=== PATIENT | male | born 1980 | race African-American/Black ===

== ENCOUNTER 2019-10-23 10:37 | Emergency (ER) | payer SELFPAY ==
[~2019-10-23] VITALS: Ht 180.3 cm; Wt 120.5 kg
[2019-10-23 10:51] VITALS: TEMP 98.3
[2019-10-23] MEDS ORDERED: PROAIR RES117 MCG/Ac IH (11:00)
[2019-10-23] MEDS ORDERED: PREDNISONE20 MG PO (11:47)
[2019-10-23 12:25] VITALS: BP 101/79; PULSE 111
== END 2019-10-23 12:25 | disposition home or self-care (01) ==
LOC: COL.ER 10:37
DX: J45.901 Unspecified asthma with (acute) exacerbation (principal); I10 Essential (primary) hypertension
CPT/HCPCS: J7512